=== PATIENT | male | born 1990 | race Hispanic/Latino ===

== ENCOUNTER 2019-05-09 10:57 | Emergency (ER) | payer OTHER ==
[2019-05-09] MEDS ORDERED: SODIUM CHLORIDE 0.9% 1000ML 1,000 ML IV ONE (11:45)
[2019-05-09] MEDS ORDERED: FOLIC ACID 5 MG/ML 10 ML VIAL ONE (11:45)
[2019-05-09 11:46] LABS: BASOPHILS % (AUTO) 0.7 % (0.0-5.0); EOSINOPHILS % (AUTO) 1.5 % (0.0-8.0); HEMATOCRIT 43.2 % (42-54); LYMPHOCYTES % (AUTO) 12.1 % (21.0-51.0); MEAN CORPUSCULAR HEMOGLOBIN 35.1 pg (27.0-33.0); MEAN CORPUSCULAR HGB CONC 34.2 g/dL (32.0-36.0); MEAN CORPUSCULAR VOLUME 102.5 fL (79-99); MONOCYTES % (AUTO) 13.9 % (3.0-13.0); NEUTROPHILS % (AUTO) 71.8 % (40.0-77.0); NUCLEATED RED BLOOD CELLS 0.3 % (0.0-0.19); PLATELET COUNT (AUTO) 117 K/uL (130-400); RED BLOOD CELL COUNT(AUTO) 4.21 MIL/uL (4.50-6.20); RED CELL DISTRIBUTION WIDTH 12.5 % (11.0-15.5); WHITE BLOOD COUNT (AUTO) 3.8 K/uL (4.8-10.8)
[2019-05-09 11:53] LABS: AMPHET/METH SCREEN,URINE NEGATIVE (NEGATIVE); BARBITURATE SCREEN, URINE NEGATIVE (NEGATIVE); BENZODIAZEPINES SCREEN,URINE NEGATIVE (NEGATIVE); CANNABINOID SCREEN,URINE NEGATIVE (NEGATIVE); COCAINE SCREEN,URINE NEGATIVE (NEGATIVE); OPIATE SCREEN,URINE NEGATIVE (NEGATIVE); PHENCYCLIDINE SCREEN,URINE NEGATIVE (NEGATIVE)
[2019-05-09 12:07] LABS: CREATININE 0.6 mg/dL (0.5-1.5); POTASSIUM 3.6 mmol/L (3.5-5.1)
[2019-05-09 12:14] LABS: ALBUMIN 3.5 g/dL (3.5-5.0); BILIRUBIN,TOTAL 0.8 mg/dL (0.2-1.0); TOTAL PROTEIN, SERUM 8.1 g/dL (6.0-8.3)
[2019-05-09 12:16] LABS: ALCOHOL, BLOOD 414 mg/dL (0-10)
[2019-05-09 12:29] LABS: ACETAMINOPHEN < 1 mcg/mL (10-29); SALICYLATE < 2.8 mg/dL (2.8-20.0)
== END 2019-05-09 13:04 | disposition home or self-care (01) ==
LOC: EDH 10:57
DX: F10.129 Alcohol abuse with intoxication, unspecified (principal); R20.2 Paresthesia of skin; R94.5 Abnormal results of liver function studies; R11.2 Nausea with vomiting, unspecified; R19.7 Diarrhea, unspecified; F12.90 Cannabis use, unspecified, uncomplicated; Z72.0 Tobacco use
CPT/HCPCS: 36415; 80053; 80305; 82010; 83735; 85025; 96360; 96372; 99284; G0480 ×2; G0481; J3490; J7030

== ENCOUNTER 2022-10-22 14:35 | Emergency (ER) | payer BC ==
[~2022-10-22] VITALS: Ht 177.8 cm; Wt 68.0 kg
[2022-10-22 14:42] VITALS: BP 153/74
[2022-10-22] MEDS ORDERED: LACTATED RINGERS 1000ML 1,000 ML IV ONE (15:30)
[2022-10-22 15:52] LABS: EOSINOPHILS % (AUTO) 3.1 % (0.0-8.0); HEMATOCRIT 31.7 % (42-54); LYMPHOCYTES % (AUTO) 4.2 % (21.0-51.0); MEAN CORPUSCULAR HEMOGLOBIN 31.7 pg (27.0-33.0); MEAN CORPUSCULAR HGB CONC 34.7 g/dL (32.0-36.0); MEAN CORPUSCULAR VOLUME 91.4 fL (79-99); MONOCYTES % (AUTO) 12.3 % (3.0-13.0); NEUTROPHILS % (AUTO) 78.8 % (40.0-77.0); PLATELET COUNT (AUTO) 121 K/uL (130-400); RED BLOOD CELL COUNT(AUTO) 3.47 MIL/uL (4.50-6.20); RED CELL DISTRIBUTION WIDTH 14.3 % (11.0-15.5); WHITE BLOOD COUNT (AUTO) 6.2 K/uL (4.8-10.8)
[2022-10-22 16:05] LABS: CARBON DIOXIDE 27 mmol/L (21-32); CHLORIDE 92 mmol/L (101-111); CREATININE 0.9 mg/dL (0.5-1.5); GLOMERULAR FILTR. RATE CALC 103 mL/min (>60); GLUCOSE,RANDOM 126 mg/dL (70-105); POTASSIUM 3.3 mmol/L (3.5-5.1); SODIUM SERUM 131 mmol/L (136-145); UREA NITROGEN, BLOOD 4 mg/dL (7-18)
[2022-10-22 16:10] LABS: ALANINE AMINOTRANSFERASE 45 U/L (12-78); ALBUMIN 1.5 g/dL (3.5-5.0); ASPARTATE AMINOTRANSFERASE 192 U/L (10-37); CREATINE KINASE, TOTAL 186 U/L (21-232); TOTAL PROTEIN, SERUM 6.2 g/dL (6.0-8.3)
[2022-10-22 16:11] LABS: PHENYTOIN (DILANTIN) < 0.5 mcg/mL (10.0-20.0)
[2022-10-22 16:21] LABS: VALPROIC ACID < 3 mcg/mL (50-100)
[2022-10-22] MEDS ORDERED: LEVETIRACETAM 500 MG/5 ML SD VIAL IV ONE (17:06)
[2022-10-22] MEDS ORDERED: ONDANSETRON 4MG INJ ONE (17:38)
[2022-10-22] MEDS ORDERED: LEVE250T PO (17:52)
== END 2022-10-22 18:34 | disposition home or self-care (01) ==
LOC: EDH 14:35
DX: R56.9 Unspecified convulsions (principal); F10.10 Alcohol abuse, uncomplicated; K74.60 Unspecified cirrhosis of liver; Y90.9 Presence of alcohol in blood, level not specified
CPT/HCPCS: 99284; 96365; 70450; 96375; 80164; 82550; 80185; 80053; 85025; 36415; J7120; J1953; J2405; 96374